=== PATIENT | female | born 1995 | race Two or more races ===

== ENCOUNTER 2021-05-04 14:40 | Outpatient (CLI) | payer OTHER | END 2021-05-04 16:29 | disposition home or self-care (01) | LOC: PRENATAL 14:40 | PROVIDERS: ATTEND Obstetrics & Gynecology Maternal & Fetal Medicine | DX: O35.0XX1 Maternal care for (suspected) central nervous system malformation in fetus, fetus 1 (principal); O35.3XX1 Maternal care for (suspected) damage to fetus from viral disease in mother, fetus 1; O98.512 Other viral diseases complicating pregnancy, second trimester; Z36.89 Encounter for other specified antenatal screening; Z3A.24 24 weeks gestation of pregnancy ==

== ENCOUNTER 2021-07-30 07:00 | Inpatient (IN) | payer OTHER ==
[~2021-07-30] VITALS: Ht 154.9 cm; Wt 2.7 kg
[2021-07-30] MEDS ORDERED: PRENA PO (09:03)
== END 2021-08-04 17:00 | disposition home or self-care (01) | DRG 788 ==
LOC: O/R 08-01 06:00 → OB/GYN 08-01 06:00
PROVIDERS: ADMIT Obstetrics & Gynecology; ATTEND Obstetrics & Gynecology
PROC: 4A1HXFZ Monitoring of Products of Conception, Cardiac Rhythm, External Approach (ICD-10-PCS; 2021-08-01)
PROC: 10D00Z1 Extraction of Products of Conception, Low, Open Approach (ICD-10-PCS; principal; 2021-08-01 09:30)
DX: O82 Encounter for cesarean delivery without indication (principal); Z53.29 Procedure and treatment not carried out because of patient's decision for other reasons; O34.211 Maternal care for low transverse scar from previous cesarean delivery; Z37.0 Single live birth; Z3A.39 39 weeks gestation of pregnancy